=== PATIENT | male | born 1945 | race Caucasian/White ===

== ENCOUNTER 2022-03-03 21:09 | Inpatient (IN) ==
[2022-03-03 21:38] LABS: ABS Basophils 0.1 10^3/ul (0-0.2); ABS Lymphocytes 0.9 10^3/ul (1.0-4.8); ABS Monocytes 0.5 10^3/ul (0-0.8); ABS Neutrophils 7.1 10^3/ul (1.5-7.7); Eosinophil % 0.5 %; Hematocrit 45 % (42-52); Hemoglobin 14.8 g/dL (14.0-18.0); Lymphocyte % 10.8 %; Mean Corpuscular HGB Conc 33 g/dL (31-36); Mean Corpuscular Hemoglobin 30 pg (27-31); Mean Corpuscular Volume 92 fL (80-94); Mean Platelet Volume 10.7 fL (7.4-10.4); Platelet Count 126 10^3/uL (150-450); Red Cell Distribution Width 15 % (10-15); White Blood Count 8.6 10^3/uL (3.5-10.8)
[2022-03-03 21:47] LABS: INR 1.42 (0.86-1.15)
[2022-03-03 22:58] LABS: Albumin 4.3 g/dL (3.2-5.2); Albumin/Globulin Ratio 1.2 (1-3); Globulin 3.5 g/dL (2-4); Potassium 4.4 mmol/L (3.5-5.0); Total Bilirubin 1.4 mg/dL (0.2-1.0); Total Protein 7.8 g/dL (6.4-8.9); eGFR CKD-EPI 42.4 (>60)
[2022-03-03 23:14] LABS: High Sensitivity Troponin 1 Hr 169 pg/mL (<20)
[2022-03-03] MEDS ORDERED: Morphine 4 MG/ML VIAL (1 ml) IV PRN (23:40)
[2022-03-04 02:15] LABS: ABS Lymphocytes 0.9 10^3/ul (1.0-4.8); ABS Monocytes 0.3 10^3/ul (0-0.8); ABS Neutrophils 8.3 10^3/ul (1.5-7.7); Hematocrit 44 % (42-52); Hemoglobin 14.8 g/dL (14.0-18.0); Lymphocyte % 9.1 %; Mean Corpuscular HGB Conc 33 g/dL (31-36); Mean Corpuscular Hemoglobin 30 pg (27-31); Mean Corpuscular Volume 91 fL (80-94); Mean Platelet Volume 10.5 fL (7.4-10.4); Platelet Count 117 10^3/uL (150-450); Red Cell Distribution Width 16 % (10-15); White Blood Count 9.5 10^3/uL (3.5-10.8)
[2022-03-04] MEDS: Heparin 5000 UNITS/ML 1 mL VIAL IV SCH ×2 (02:53→16:00)
[2022-03-04] MEDS: Heparin DRIP 25,000 UNITS BAG 25,000 UNITS/500 ML BAG IV SCH (02:55)
[2022-03-04] MEDS ORDERED: Dextrose 50% Syringe 50 ml 25 GM/50 ML SYRINGE IV PUSH PRN (03:18)
[2022-03-04 05:05] LABS: High Sensitivity Troponin 3 Hr 2317 pg/mL (<20)
[2022-03-04 05:20] LABS: HDL Cholesterol 37.3 mg/dL
[2022-03-04] MEDS: Isosorbide Mononit ER 60mg TAB PO SCH (16:00)
[2022-03-05] MEDS: Heparin DRIP 25,000 UNITS BAG 25,000 UNITS/500 ML BAG IV SCH (03:10)
[2022-03-05 04:50] LABS: ABS Basophils 0.1 10^3/ul (0-0.2); ABS Eosinophils 0.1 10^3/ul (0-0.6); ABS Lymphocytes 1.7 10^3/ul (1.0-4.8); ABS Monocytes 0.6 10^3/ul (0-0.8); ABS Neutrophils 5.5 10^3/ul (1.5-7.7); Hematocrit 42 % (42-52); Hemoglobin 13.8 g/dL (14.0-18.0); Lymphocyte % 21.6 %; Mean Corpuscular HGB Conc 33 g/dL (31-36); Mean Corpuscular Hemoglobin 30 pg (27-31); Mean Corpuscular Volume 91 fL (80-94); Mean Platelet Volume 10.1 fL (7.4-10.4); Platelet Count 127 10^3/uL (150-450); Red Blood Count 4.69 10^6 /uL (4.18-5.48); Red Cell Distribution Width 15 % (10-15)
[2022-03-05 05:06] LABS: Activated Partial Thrombo Time 50.6 seconds (26.0-38.0)
[2022-03-05 05:26] LABS: Calcium 10.3 mg/dL (8.6-10.3); Potassium 3.9 mmol/L (3.5-5.0); eGFR CKD-EPI 49.8 (>60)
[2022-03-05] MEDS ORDERED: Aspirin EC 81 mg TAB.EC (enteric coated) PO SCH (09:00)
[2022-03-05] MEDS: Isosorbide Mononit ER 60mg TAB PO SCH (10:26)
[2022-03-05 18:23] VITALS: BP 108/77
== END 2022-03-05 18:20 | disposition home or self-care (01) | DRG 281 ==
LOC: ED 21:09 → SUATTDRO 03-04 02:26 → EDHOLD 03-04 02:26 → MEDTELE 03-04 04:38
PROVIDERS: ADMIT Internal Medicine; ATTEND Hospitalist